=== PATIENT | male | born 1965 | race Caucasian/White ===

== ENCOUNTER 2022-10-20 10:36 | Day surgery (SDC) | payer OTHER, SELFPAY ==
[2022-09-30 09:11] VITALS: BMI 30.7
[2022-10-08 12:00] VITALS: BMI 28.0
--- NOTE | 2022-10-20 11:04 | P.PNAN_ITS ---
Anes - Initial Pre Proc Eval Procedure: Operation Date: 10/20/22 12:30 Proposed Procedures p Screening Colonoscopy - Pee Menendez MD Date/Time: 10/20/22 11:04 Surgeon: Pee Menendez MD Pre Op Diagnosis: Neoplasm Screening Patient Data Age: 56 Gender: M Height: 1.75 m Weight: 86 kg Allergies Allergy/AdvReac Type Severity Reaction Status Date / Time No Known Allergies Allergy Verified 10/08/22 11:55 Home Medications Medication Instructions Recorded Confirmed Type losartan 100 mg tablet 100 mg PO DAILY #90 tabs 06/04/22 10/08/22 Rx metoprolol succinate 25 mg 25 mg PO DAILY #90 tabs 06/04/22 10/08/22 Rx tablet,extended release 24 hr atorvastatin 10 mg tablet See Rx Instructions .Route 09/22/22 10/08/22 Rx .COMPLEX #90 tabs sodium,potassium,mag sulfates 17.5 See Rx Instructions PO .COMPLEX 09/30/22 10/08/22 Rx gram-3.13 gram-1.6 gram oral soln #354 mL (Suprep Bowel Prep Kit) Patient hx anesthesia problems: none Family hx anesthesia problems: none Results Review: All pre-operative results and documents have been reviewed as part of the pre- operative evaluation. [facility] Past Medical History Medical History (Updated 10/20/22 @ 11:05 by Scout Reed MD) ACL tear 1988 Hyperlipidemia Hypertension Overweight Surgical History Surgical History History of appendectomy 1992 Family History Family History Father Family history of malignant neoplasm Malignant neoplasm of prostate Grandparent Family history of cardiovascular disease, Onset Age: 56 Acute myocardial infarction, Onset Age: 60 Social History Social History Smoking status: Never smoker Alcohol intake: current Alcohol use details: pt states 2-3 drinks per day Substance use: never Substance use type: does not use Lack of Transportation: No Lack of Food: Never True Current Housing: I Have Housing Concerned About Future Housing: No Difficulty Paying Gas/Electric Bills: No Difficulty Paying for Meds: No Currently Unemployed: No Education: Bachelor's Degree Difficulty w/ Childcare or Family Care: No Living arrangements: with family Spiritual care concerns: No Anes - Eval Final PreProcedure Day of Procedure 10/20/22 11:04 Patient weight: overweight Heart: regular rate and rhythm Lungs: clear to auscultation and normal air movement Airway: Mallampati scale class II Neurological: alert and oriented Last oral intake: >/= 8 hours ASA classification: III Emergent: no Anesthetic plan: proceed Anesthesia type and monitoring: general GIVS Results Review: All pre-operative results and documents have been reviewed as part of the pre- operative evaluation. Informed Consent: The patient's anesthetic plan and its attendant risks and benefits were discussed with the patient/family/POA. Questions were solicited and answers provided to the satisfaction of the patient/family/POA.
[2022-10-20 11:10] VITALS: BP 166/91; PULSE 62; RESP 20; TEMP 36.7; O2SAT 100
--- NOTE | 2022-10-20 11:18 | PM.HPGS ---
History of Present Illness History of Present Illness Consent: Risks, benefits, and alternatives have been discussed and questions answered. Patient agrees to proceed with procedure. Chief complaint: Neoplasm Screening Narrative: Omid Fierro is a 56 year old male Presents for screening colonoscopy. Patient's current weight appetite and bowel movements are normal. He denies abdominal pain. Patient has had no bleeding. Family history noncontributory. Patient had an adenomatous colon polyp removed from the colon at time of previous colonoscopy in 2018. Review of Systems Review of Systems: Review of systems noncontributory. [facility] Past Medical History Medical History (Updated 10/20/22 @ 11:19 by Pee Menendez MD) ACL tear 1988 Hyperlipidemia Hypertension Overweight Surgical History Surgical History History of appendectomy 1992 Family History Family History Father Family history of malignant neoplasm Malignant neoplasm of prostate Grandparent Family history of cardiovascular disease, Onset Age: 56 Acute myocardial infarction, Onset Age: 60 Social History Social History Smoking status: Never smoker Alcohol intake: current Alcohol use details: pt states 2-3 drinks per day Substance use: never Substance use type: does not use Lack of Transportation: No Lack of Food: Never True Current Housing: I Have Housing Concerned About Future Housing: No Difficulty Paying Gas/Electric Bills: No Difficulty Paying for Meds: No Currently Unemployed: No Education: Bachelor's Degree Difficulty w/ Childcare or Family Care: No Living arrangements: with family Spiritual care concerns: No Meds Home Medications and Allergies Home Medications Medication Instructions Recorded Confirmed Type losartan 100 mg tablet 100 mg PO DAILY #90 tabs 06/04/22 10/08/22 Rx metoprolol succinate 25 mg 25 mg PO DAILY #90 tabs 06/04/22 10/08/22 Rx tablet,extended release 24 hr atorvastatin 10 mg tablet See Rx Instructions .Route 09/22/22 10/08/22 Rx .COMPLEX #90 tabs sodium,potassium,mag sulfates 17.5 See Rx Instructions PO .COMPLEX 09/30/22 10/08/22 Rx gram-3.13 gram-1.6 gram oral soln #354 mL (Suprep Bowel Prep Kit) Allergies Allergy/AdvReac Type Severity Reaction Status Date / Time No Known Allergies Allergy Verified 10/08/22 11:55 Exam Narrative: Physical exam reveals patient to be alert. Vital signs stable. HEENT exam is unremarkable. Patient is anicteric. Lungs are clear to auscultation and percussion. Heart is without murmur or extra sounds. Abdomen bowel sounds are present soft nontender with no organomegaly. Digital external rectal exam is normal. Assessment and Plan Assessment and plan (1) History of colon polyps: Code(s): Z86.010 - Personal history of colonic polyps Status: Acute Assessment and Plan: Patient has a history of benign adenomatous colon polyp removed the colon in 2018. Plan for surveillance colonoscopy at this time. Further recommendations will be given after endoscopy.
[2022-10-20] MEDS: LACTATED RINGERS 1,000 ML 150 ML IV CONT (11:30)
[2022-10-20 13:39] VITALS: BP 144/85; PULSE 99; RESP 20; O2SAT 99
[2022-10-20 13:49] VITALS: BP 143/88; PULSE 66; RESP 20; O2SAT 100
[2022-10-20 13:59] VITALS: BP 135/85; PULSE 60; RESP 20; O2SAT 100
--- NOTE | 2022-10-20 15:02 | WPDANESPN ---
Anes - Prog Note Post-Op Date/Time: 10/20/22 15:02 Cardiovascular status: normal Respiratory status: normal Airway patency: baseline Mental status: baseline Post-Op hydration status: normal Vital Signs: Last Vital Signs Temp 36.7 C 10/20/22 11:10 Pulse 60 10/20/22 13:59 Resp 20 10/20/22 13:59 BP 135/85 10/20/22 13:59 Pulse Ox 100 10/20/22 13:59 O2 Del Method Room Air 10/20/22 13:59 Pain Score (VAS): 0 I/O: Intake & Output 10/19/22 10/20/22 10/20/22 23:59 07:59 15:59 Intake Total 600 Balance 600 Post-procedural complaints: none Patient Feedback: Patient satisfied with anesthetic care.
== END 2022-10-20 14:09 | disposition home or self-care (01) ==
PROVIDERS: PCP Family Medicine; Visit Provider Internal Medicine Gastroenterology
PROC: 0DJD8ZZ Inspection of Lower Intestinal Tract, Via Natural or Artificial Opening Endoscopic (ICD-10-PCS; CPT 45378; principal; 2022-10-20 12:30)
DX: Z86.010 Personal history of colon polyps (principal)
CPT/HCPCS: 45378